=== PATIENT | female | born 1960 | race Caucasian/White ===

== ENCOUNTER 2017-03-10 08:46 | Emergency (ER) | payer OTHER ==
[2017-03-10 08:52] VITALS: BMI 22.0
[2017-03-10 08:53] VITALS: BP 131/72; PULSE 91; RESP 19; TEMP 98.2; O2SAT 99
--- NOTE | 2017-03-10 09:57 | ED PDOC ---
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 Patient reports taking 600 mg Motrin and tylenol which provides relief but is starting to irritate her stomach. PMD: none provide Past Medical History Reviewed: Historical Data, Nursing Documentation, Vital Signs Vital Signs: Last Vital Signs Temp 98.2 F 03/10/17 08:51 Pulse 91 H 03/10/17 08:51 Resp 19 03/10/17 08:51 BP 131/72 03/10/17 08:51 Pulse Ox 99 03/10/17 08:51 - Medical History PMH: Anemia, Gastritis - Surgical History Surgical History: No Surg Hx - Family History Family History: States: Unknown Family Hx - Home Medications Home Medications: Ambulatory Orders Medication Instructions Recorded No Known Home Med 01/18/16 - Allergies Allergies/Adverse Reactions: Allergies Allergy/AdvReac Type Severity Reaction Status Date / Time No Known Allergies Allergy Verified 01/18/16 08:33 Review of Systems ROS Statement: Except As Marked, All Systems Reviewed And Found Negative Musculoskeletal: Positive for: Hand Pain (left thumb pain ) Physical Exam - Reviewed Nursing Documentation Reviewed: Yes Vital Signs Reviewed: Yes - Physical Exam Appears: Positive for: Well, Non-toxic, No Acute Distress Head Exam: Positive for: ATRAUMATIC, NORMAL INSPECTION, NORMOCEPHALIC Cardiovascular/Chest: Positive for: Regular Rate, Rhythm Respiratory: Positive for: CNT, Normal Breath Sounds Extremity: Positive for: Normal ROM, Tenderness (left thumb at the Mc joint to the IP joing). Negative for: Deformity, Swelling, Other (erythema) Neurologic/Psych: Positive for: Alert, Oriented - ECG O2 Sat by Pulse Oximetry: 99 (RA) Pulse Ox Interpretation: Normal - Other Rad XR L hand X-Ray: Read By Radiologist (Normal left hand radiographs.) Medical Decision Making Medical Decision Making: Initial Impression: Musculoskeletal pain Initial Plan: * x-ray left hand * reevaluation Scribe Attestation: Documented by Marily Russell, acting as a scribe for Marily Downey MD. Provider Scribe Attestation: All medical record entries made by the Scribe were at my direction and personally dictated by me. I have reviewed the chart and agree that the record accurately reflects my personal performance of the history, physical exam, medical decision making, and the department course for this patient. I have also personally directed, reviewed, and agree with the discharge instructions and disposition. Disposition - Clinical Impression Clinical Impression: Thumb sprain - Disposition Disposition: Routine/Home Disposition Time: 10:57 Condition: STABLE Additional Instructions: FOLLOW-UP WITH [facility]. CONTINUE MOTRIN OR TYLENOL NEEDED FOR PAIN. Instructions: Finger Sprain (ED)
--- NOTE | 2017-03-10 11:34 | RAD ---
PROCEDURE: Left Hand Radiographs. HISTORY: Lateral 1st digit pain COMPARISON: None. FINDINGS: BONES: Normal. No fracture. JOINTS: Normal. No osteoarthritic changes. SOFT TISSUES: Normal. OTHER FINDINGS: None. IMPRESSION: Normal left hand radiographs.
== END 2017-03-10 11:15 | disposition home or self-care (01) ==
LOC: H.ER 08:46
DX: S63.609A Unspecified sprain of unspecified thumb, initial encounter (principal); X58.XXXA Exposure to other specified factors, initial encounter; Y93.F9 Activity, other caregiving; Y92.239 Unspecified place in hospital as the place of occurrence of the external cause; Y99.0 Civilian activity done for income or pay

== ENCOUNTER 2017-04-10 08:36 | Day surgery (SDC) | payer OTHER ==
[2017-04-10] MEDS ORDERED: Lactated Ringer's 500 ML IV ONE (09:15)
[2017-04-10 09:45] VITALS: O2SAT 100
[2017-04-10] MEDS ORDERED: Propofol 10 mg/ml Inj (20 ML) ONE (10:20)
[2017-04-10] MEDS ORDERED: Etomidate 20 mg/10ml Inj IV ONE (10:28)
[2017-04-10 10:58] VITALS: BP 106/51; PULSE 85; RESP 20; TEMP 97
== END 2017-04-10 11:27 | disposition home or self-care (01) ==
LOC: H.ENDO 08:36
PROVIDERS: ATTEND Internal Medicine Gastroenterology
DX: K29.70 Gastritis, unspecified, without bleeding (principal)